=== PATIENT | male | born 1955 | race African-American/Black ===

== ENCOUNTER 2024-04-11 09:48 | Outpatient (AMB) | payer OTHER, SELFPAY ==
--- NOTE | 2024-04-11 09:49 | MHC.OFFVIS ---
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 Patient reports ongoing pain for about 6 months. No hx of recent injuries. Hx of injections for his back which caused him more pain. He finds mild relief when taking ibuprofen. Allergies hydrocodone [From VICODIN] Allergy (Severe, Verified 04/11/24 09:55) ANXIETY acetaminophen [Vicodin] Allergy (Unknown, Verified 04/11/24 09:55) Unknown Medication List - Last Reconciled 04/11/24 by Vanda Ly MD No Known Home Meds HPI Comments Details: Referred from [facility] for neck pain. Reviewed notes from [facility]. Cervical spine x-ray reported multilevel degenerative loss of disc space and cervical facet arthritis. Foraminal narrowing right C3-4 and left C5-6. Had imaging done at [facility] 2 weeks ago. Says neck pain started 1 month ago associated with elevated BP. He then started headache, cramps and tingling on fingers. He thinks it may be related with the medication he was taking. He was also seen at ER, told to have muscle spasms and given medication. It is fairly better now. Left sided neck, worse when he looks to the left. Can go to down to shoulder, but not lower. No numbness on fingers/hands. No shoulder ROM limitation. Referred to PT, not yet started. Takes ibuprofen 800mg and muscle relaxer. Has had epidural injections lumbar, at [facility]. [facility] Social History (Updated 04/11/24 @ 09:55 by Glenda Pinedo) Alcohol intake: never Patient Tobacco Use Status: Never used Tobacco Current occupational status: retired Current occupation: right hand dominant Review of Systems Const All systems reviewed & are unremarkable except as noted in HPI and below Physical Exam Constitutional: Patient appears to be in no acute distress, well nourished and well developed. Patient was appropriately conversant and oriented. Good historian. MSK: Full left shoulder range of motion. Neurological: Gait is [non-]antalgic without loss of balance. Results Reviewed Results Reviewed: Cervical x-rays as above. I reviewed records from the following: [facility] Assessment & Plan Assessment & Plan (1) Cervical spondylosis: Code(s): M47.812 - Spondylosis without myelopathy or radiculopathy, cervical region Category: Medical Plan New onset left-sided neck pain per patient. Some improvement with muscle relaxers. Suggestive of myofascial pain. Although x-rays did show degenerative spondylosis. We will try to obtain either MRI or CT done at [facility] 2 weeks ago. (already called, per [facility] only CT chest done) Patient to start physical therapy. Assessment and plan discussed with patient, and patient was agreeable. All questions were answered thoroughly. Follow up after PT. Vanda Ly MD, ALONSO Board Certified, [place] [employer] (ABPMR) Board Certified, [place] [employer] (ABEM) Coding Level of Care Code New Pt Level 3 (62788) Diagnoses Cervical spondylosis M47.812
== END 2024-04-11 10:09 | disposition home or self-care (01) ==
PROVIDERS: PCP Nurse Practitioner Adult Health; Visit Provider Physical Medicine & Rehabilitation
DX: M47.812 Spondylosis without myelopathy or radiculopathy, cervical region (principal)
CPT/HCPCS: 99203

== ENCOUNTER → 2024-04-11 09:48 | Outpatient (BNVA) | payer OTHER, SELFPAY | PROVIDERS: PCP Nurse Practitioner Adult Health; Visit Provider Physical Medicine & Rehabilitation | DX: M47.812 Spondylosis without myelopathy or radiculopathy, cervical region (principal); I10 Essential (primary) hypertension | CPT/HCPCS: 99202 ==